=== PATIENT | female | born 1970 | race Caucasian/White ===

== ENCOUNTER 2016-05-30 03:24 | Emergency (ER) | payer OTHER ==
[~2016-05-30 03:24] MED LIST: BENADRYL25 MG PO; CYMBALTA 30MG C30 MG PO; CYMBALTA60 MG PO; DEPAKOTE500 MG PO; FENOFIBRATE160 MG PO; FLONASE ALLER15.8 ML; HUMALOG100 UNIT/1 SC; LANTUS **100 UNITS/ SC; LEVAQUIN500 MG PO; LITHIUM CARBON450 MG PO; NEURONTIN600 MG PO; OMEPRAZOLE40 MG PO; SYNTHROID112 MC1 PO; VITAMIN D5000 UNIT PO; ZOVIRAX200 MG PO
[2016-05-30 04:13] LABS: CREATININE 0.5 mg/dL (0.5-1.0); POTASSIUM 4.3 mmol/L (3.5-5.1)
== END 2016-05-30 06:05 | disposition home or self-care (01) ==
LOC: FER 03:24
PROVIDERS: Internal Medicine
DX: E11.65 Type 2 diabetes mellitus with hyperglycemia (principal); E11.40 Type 2 diabetes mellitus with diabetic neuropathy, unspecified; E78.5 Hyperlipidemia, unspecified; Z88.8 Allergy status to other drugs, medicaments and biological substances; Z79.4 Long term (current) use of insulin; Z79.82 Long term (current) use of aspirin; Z79.899 Other long term (current) drug therapy
CPT/HCPCS: 36415; 80048; 82947

== ENCOUNTER 2020-07-28 06:57 | Day surgery (SDC) | payer MEDICARE, OTHER ==
[~2020-07-28] VITALS: Ht 158 cm; Wt 109.0 kg
[~2020-07-28 06:57] MED LIST changes: +ALDACTONE25 MG PO; +ALLOPURINOL100 MG PO; +ASPIRIN CHEWABL81 MG PO; +ATARAX25 MG PO; +CRESTOR10 MG PO; +DOXEPIN HCL150 MG PO; +DOXEPIN HCL25 MG PO; +DOXYCYCLINE MON50 M1 PO; +ESTRACE1 MG PO; +EZFE 200200 MG PO; +HUMALOG 75100 UNIT/M SC; +HUMULIN R500 UNIT/1 SC; +LIPITOR 10MG TA10 MG PO; +LITHIUM CARBON300 M2 PO; +MELATONIN5 M2 PO; +OLANZAPINE10 MG PO; +OXY-IR 5MG5 MG PO; +PERCOCET 5-3251 EACH PO; +RISPERDAL 1MG TA1 MG PO; +SINGULAIR10 MG PO; +SPIRONOLACTONE100 M1 PO; +VALTREX1000 MG PO; +VITAMIN D35000 UNI2 PO; +VITAMIN D35000 UNIT PO; -VITAMIN D5000 UNIT PO; +VRAYLAR3 MG PO; +ZYRTEC10 M3 PO
[2020-07-28] MEDS ORDERED: PERCOCET 5-3251 EACH PO (07:00)
[2020-07-28] MEDS ORDERED: ABILIFY5 MG PO (07:27)
[2020-07-28] MEDS ORDERED: TRAZODONE HCL150 MG PO (07:29)
--- NOTE | 2020-07-28 14:34 | NUR ---
PT WILL RETURN HOME. PT. HAS A ROLLING WALKER. PT. REQUESTS OUTPT AT [facility]. [facility], THEY DO NOT HAVE AN APPT. UNTIL MONDAY. ADVISED OPHELIA LYNN OF THIS INFORMATION. SHANE WILL DISCUSS WITH PT FOR A SECOND CHOICE.
[2020-07-29 06:59] LABS: BASOPHIL 0.1 % (0-2); EOSINOPHIL 0 % (0-5); HCT 33.9 % (37.0-47.0); HGB 11.2 g/dl (12.5-16.0); LYMPHOCYTE 12.1 % (15-48); MCH 30.8 pg (25.0-31.0); MCV 93.1 fL (78.0-100.0); MONOCYTE 6.4 % (0-12); MPV 10.5 fL (6.0-9.5); NEUTROPHIL 80.6 % (41-80); NRBC 0; PLT 161 K/uL (150-400); RBC 3.64 M/uL (4.20-5.40); RDW 12.8 % (11.5-14.0); WBC 13.6 K/uL (4.0-10.5)
[2020-07-29 07:17] LABS: BUN/CREAT RATIO (CALC) 16.7 RATIO; CREATININE 0.72 mg/dL (0.51-0.95); POTASSIUM 4.8 mmol/L (3.5-5.1)
[2020-07-29] MEDS ORDERED: ASPIRIN81 MG PO (09:50)
--- NOTE | 2020-07-29 10:19 | NUR ---
PT. ADVISED THAT HER FOUND A RW FOR HER. SHE IS INELIGIBLE FOR A NEW RW SHE GOT A CANE WTIHIN THE LAST FIVE YEARS. SHANE BLOCK GOT PT. AN APPT. WITH [facility] FOR 07/30/2020 @ 12:00 PT. SIGNED CHOICE FORM.
[2020-11-10] MEDS ORDERED: ASPIRIN EC81 MG PO (15:05)
[2020-11-10] MEDS ORDERED: TOPAMAX25 MG PO (15:08)
[2020-11-17] MEDS ORDERED: NORCO 5-325 TA1 EACH PO (10:22)
[2020-11-17] MEDS ORDERED: ONDANSETRON ODT8 MG PO (10:22)
== END 2020-07-29 11:20 | disposition home or self-care (01) ==
LOC: FAS 06:57 → FMS 06:57 → FAS 08:30 → FMS 09:33 → FAS 07-29 11:20
PROVIDERS: Orthopaedic Surgery
DX: M17.12 Unilateral primary osteoarthritis, left knee (principal); E11.9 Type 2 diabetes mellitus without complications; G47.33 Obstructive sleep apnea (adult) (pediatric); E03.9 Hypothyroidism, unspecified; F20.9 Schizophrenia, unspecified; E78.00 Pure hypercholesterolemia, unspecified; K58.9 Irritable bowel syndrome, unspecified; Z99.89 Dependence on other enabling machines and devices; M79.7 Fibromyalgia; Z86.73 Personal history of transient ischemic attack (TIA), and cerebral infarction without residual deficits; Z96.651 Presence of right artificial knee joint; Z88.0 Allergy status to penicillin; Z88.8 Allergy status to other drugs, medicaments and biological substances; Z79.82 Long term (current) use of aspirin; Z79.2 Long term (current) use of antibiotics; Z79.891 Long term (current) use of opiate analgesic; Z79.4 Long term (current) use of insulin; Z79.899 Other long term (current) drug therapy
CPT/HCPCS: 36415; 73560; 80048; 85025; 86850; 86900; 86901; 94010; 97110; 97162; 97166; 97530-GP; 97535; C1713; C1776; J0171; J0735; J1170; J1885; J2250; J2270; J2405; J2704; J2795; J3010; J7120